=== PATIENT | male | born 1995 | race Caucasian/White ===

== ENCOUNTER 2020-12-09 13:51 | Emergency (ER) | payer BC, MEDICAID ==
--- NOTE | 2020-12-09 14:38 | EDM.PDOC ---
ED HPI GENERAL MEDICAL PROBLEM - General Chief Complaint: Allergic Reaction Stated Complaint: ALLERGIC REACTION Time Seen by Provider: 12/09/20 14:07 Source of Information: Reports: Patient History Limitations: Reports: No Limitations - History of Present Illness INITIAL COMMENTS - FREE TEXT/NARRATIVE: HISTORY AND PHYSICAL: History of present illness: Patient is a 25-year-old male who presents emergency room today with concern of rash x3 days and states that he thinks he may have hives. Patient states that he has seasonal allergies and recently has switched from Zyrtec to a different allergy medication. Patient states that starting 3 days ago, he began developing this rash on his arms that has now spread up his arms and onto his chest. Patient states he was recently traveling and visiting family in [place] and just got back to [place] not too long ago. Patient states that he has taken Benadryl and has not "touched" or done anything with the rash. Patient states that the rash is itchy and this is worse at night when he is trying to sleep. Patient denies any other symptoms or concerns. Patient denies fever, chills, chest pain, shortness of breath, or cough. Denies headache, neck stiff ness, change in vision, syncope, or near syncope. Denies nausea, vomiting, abdominal pain, diarrhea, constipation, or dysuria. Has not noted any blood in urine or stool. Patient has been eating and drinking appropriately. Review of systems: As per history of present illness and below otherwise all systems reviewed and negative. Past medical history: As per history of present illness and as reviewed below otherwise noncontributory. Surgical history: As per history of present illness and as reviewed below otherwise noncontributory. Social history: See social history for further information Family history: As per history of present illness and as reviewed below otherwise noncontributory. Physical exam: General: Patient is alert, oriented, and in no acute distress. Patient sitting comfortably on exam table. Vitals stable and reviewed by me. HEENT: Atraumatic, normocephalic, pupils equal and reactive bilaterally, negative for conjunctival pallor or scleral icterus, mucous membranes moist, TMs normal bilaterally, throat clear, neck supple, nontender, trachea midline. No drooling or trismus noted. No meningeal signs. No hot potato voice noted. Lungs: Clear to auscultation, breath sounds equal bilaterally, chest nontender. Heart: S1S2, regular rate and rhythm without overt murmur Abdomen: Soft, nondistended, nontender. Negative for masses or h epatosplenomegaly. Negative for costovertebral tenderness. Pelvis: Stable nontender. Genitourinary: Deferred. Rectal: Deferred. Skin: There is multiple generalized eruptions with various papules/pustules and linear burrowing in various areas including the webspace of all digits, flexor aspects of his wrists, axilla bilaterally, nipple area care, and periumbilical region consistent with scabies infection. Otherwise, intact, warm, dry. Extremities: Atraumatic, negative for cords or calf pain. Neurovascular unremarkable. Neuro: Awake, alert, oriented. Cranial nerves II through XII unremarkable. Cerebellum unremarkable. Motor and sensory unremarkable throughout. Exam nonfocal. Notes: Signs and symptoms that were prompt return to the ED thoroughly discussed with patient. Discussed importance of follow-up with a primary care provider or lottery manager. Voices understanding and is agreeable to plan of care. Denies any further questions or concerns at this time. Diagnostics: None Therapeutics: None Prescription: Permethrin cream Impression: Scabies dermatitis Plan: 1. Apply medication as prescribed. 2. You can alternate ibuprofen and Tylenol as directed for pain and discomfort. You can also continue to take Benadryl as directed and as discussed. 3. Follow-up with your primary care provider or the lottery manager as discussed. Return to the ED as needed and as discussed. Definitive disposition and diagnosis as appropriate pending reevaluation and review of above. - Related Data Allergies Allergy/AdvReac Type Severity Reaction Status Date / Time No Known Allergies Allergy Verified 12/09/20 14:15 Home Meds: Home Meds Permethrin [Permethrin 5% Cream] 60 gm TP ONETIME #60 gm 12/09/20 [Rx] Past Medical History - Past Health History Medical/Surgical History: Denies Medical/Surgical History Musculoskeletal History: Reports: Muscular Dystrophy - Infectious Disease History Infectious Disease History: Reports: None Social & Family History - Tobacco Use Tobacco Use Status *Q: Current Every Day Tobacco User Years of Tobacco use: 8 Packs/Tins Daily: 0.5 - Caffeine Use Caffeine Use: Reports: None - Recreational Drug Use Recreational Drug Use: Yes Drug Use in Last 12 Months: Yes Recreational Drug Type: Reports: Marijuana/Hashish Recreational Drug Use Frequency: Daily ED ROS ALLERGIC REACTION - Review of Systems Review Of Systems: Comprehensive ROS is negative, except as noted in HPI. ED EXAM GENERAL NO PERIP PULSE - Physical Exam Exam: See Below (See dictation) Course - Vital Signs Last Recorded V/S: Last Vital Signs Temp 97.3 F 12/09/20 14:16 Pulse 68 12/09/20 14:16 Resp 16 12/09/20 14:16 BP 112/76 12/09/20 14:16 Pulse Ox 99 12/09/20 14:16 Departure - Departure Time of Disposition: 14:38 Disposition: Home, Self-Care 01 Clinical Impression: Scabies - Discharge Information Prescriptions: Permethrin [Permethrin 5% Cream] 60 gm TP ONETIME #60 gm Instructions: Scabies, Adult Referrals: Emanuel Meade MD [Primary Care Provider] - Forms: ED Department Discharge Additional Instructions: The following information is given to patients seen in the emergency department who are being discharged to home. This information is to outline your options for follow-up care. We provide all patients seen in our emergency department with a follow-up referral. The need for follow-up, as well as the timing and circumstances, are variable depending upon the specifics of your emergency department visit. If you don't have a primary care physician on staff, we will provide you with a referral. We always advise you to contact your personal physician following an emergency department visit to inform them of the circumstance of the visit and for follow-up with them and/or the need for any referrals to a consulting specialist. The emergency department will also refer you to a specialist when appropriate. This referral assures that you have the opportunity for follow-up care with a specialist. All of these measure are taken in an effort to provide you with optimal care, which includes your follow-up. Under all circumstances we always encourage you to contact your private physician who remains a resource for coordinating your care. When calling for follow-up care, please make the office aware that this follow-up is from your recent emergency room visit. If for any reason you are refused follow-up, please contact the [facility] Emergency Department at and asked to speak to the emergency department charge nurse. [facility] / [facility], dermatology [address] [place] [address] [facility] [address] [place] [id number] 1. Apply medication as prescribed. 2. You can alternate ibuprofen and Tylenol as directed for pain and discomfort. You can also continue to take Benadryl as directed and as discussed. 3. Follow-up with your primary care provider or the lottery manager as discussed. Return to the ED as needed and as discussed. Sepsis Event Note (ED) - Evaluation Sepsis Screening Result: No Definite Risk - Focused Exam Vital Signs: Vital Signs Temp Pulse Resp BP Pulse Ox 12/09/20 14:16 97.3 F 68 16 112/76 99
== END 2020-12-09 14:45 | disposition home or self-care (01) ==
LOC: MW.ED 13:51
DX: B86 Scabies (principal); L30.9 Dermatitis, unspecified; Z72.0 Tobacco use
CPT/HCPCS: 99282

== ENCOUNTER 2024-06-15 19:09 | Emergency (ER) | payer MEDICAID, MEDICARE ==
[2024-06-15] MEDS: Acetaminophen 500 MG Tab PO ONE (20:03)
[2024-06-15] MEDS: Ibuprofen 600 MG Tab PO ONE (20:03)
== END 2024-06-15 22:15 | disposition home or self-care (01) ==
LOC: MW.ED 19:09
DX: S70.01XA Contusion of right hip, initial encounter (principal); Z79.899 Other long term (current) drug therapy; W00.0XXA Fall on same level due to ice and snow, initial encounter; Y93.89 Activity, other specified
CPT/HCPCS: 73502; 99283; A9270